=== PATIENT | male | born 1935 | race Caucasian/White ===

== ENCOUNTER → 2017-03-01 | Outpatient (CLI) | payer MEDICARE, BC ==
[~2017-03-01] MED LIST: ACIDOPHILUS PO; ALPRAZOLAM0.25 M1 PO; AMOXICILLIN 8751 TAB PO; ANTIOXIDANT PO; ANTIVERT 25MG25 MG PO; ASPIRIN 32325 MG/TAB PO; ASPRIN; AUGMENTIN XR 101 TER PO; AVELOX 400MG T400 MG PO; CALCIUM 1200 W/1 SGL PO; CALCIUM 600-D 61 TAB PO; CEPHALEXIN500 M1 PO; COZAAR 50MG50 MG/TAB PO; CULTURELLE10 Billion PO; CUTIVATE0.05% TP; DIFLUCAN 100MG100 MG PO; DIGOXIN PO; FLOMAX 0.40.4 MG/CAP PO; FLONASE NASAL S16 GM NS; IBU400 MG PO; ISOPTIN PO; LANOXIN 0.120.125 MG PO; LEVAQUIN 750MG750 M1 PO; MASON NATURAL1200 MG PO; MUCINEX 60600 MG/TA1 PO; MULTI VITAMINS1 TAB PO; MULTIPLE VITAMI1 CAP PO; NATURE'S BLEND400 IU PO; OMEGA-3 FISH1000 MG PO; OMEGA-3 FISH1200 MG PO; OMEPRAZOLE40 MG PO; PREDNISONE10 MG PO; PREDNISONE20 MG PO; PRIL40 PO; PROBIOTIC-MAJOR PO; QUINAGLUTE DUR324 MG PO; QUINIDINE SULF300 M2 PO; RT ADVAIR 228 DISKUS IH; RT SPIRIVA18 MCG IH; SINGULAIR 110 MG/TAB PO; VERAPAMIL HCL80 MG PO; VESICARE10 MG PO; VITAMIN C500 MG PO; VITAMIN D 400400 IU PO; XANAX .25M0.25 MG/TA PO; XANAX0.25 MG PO; ZITHROMAX 250M250 MG PO; ZOCOR 10MG10 MG PO; [UNRECOGNIZED DRUG - OTHER] PO; [UNRECOGNIZED DRUG - OTHER] PO
[2017-03-01 15:03] LABS: CALCIUM 9.5 mg/dL (8.4-10.2); CREATININE, serum 1.06 mg/dL (0.66-1.25); POTASSIUM 4.2 mmol/L (3.4-5.0)
== END ==
LOC: COL.LAB 13:49
PROVIDERS: Internal Medicine Cardiovascular Disease
DX: Z01.89 Encounter for other specified special examinations (principal)

== ENCOUNTER → 2018-03-17 | Outpatient (CLI) | payer MEDICARE, BC ==
[2018-03-17 17:58] LABS: CALCIUM 9.4 mg/dL (8.4-10.2); CREATININE, serum 1.18 mg/dL (0.66-1.25); POTASSIUM 4.3 mmol/L (3.4-5.0)
== END ==
LOC: COL.LAB 17:25
PROVIDERS: Internal Medicine Cardiovascular Disease
DX: I48.91 Unspecified atrial fibrillation (principal)

== ENCOUNTER → 2018-04-08 | Outpatient (CLI) | payer MEDICARE, BC ==
[2018-04-08 19:13] LABS: ALBUMIN 3.7 gm/dL (3.5-5.0); BILIRUBIN,TOTAL 0.9 mg/dL (0.0-1.0); CALCIUM 9.1 mg/dL (8.4-10.2); CREATININE, serum 1.18 mg/dL (0.66-1.25); TOTAL PROTEIN 7.2 gm/dL (6.4-8.2)
[2018-04-08 19:43] LABS: THYROID STIMULATING HORMONE 2.04 uIU/mL (0.465-4.680)
== END ==
LOC: COL.LAB 18:17
PROVIDERS: Internal Medicine Clinical Cardiac Electrophysiology
DX: I48.1 Persistent atrial fibrillation (principal)

== ENCOUNTER → 2018-06-03 | Outpatient (CLI) | payer MEDICARE, BC ==
[2018-06-03 11:20] LABS: BASO # 0.1 (0.0-0.2); BASO % 0.6 % (0.0-2.0); EOS # 0.2 (0.0-0.7); EOS % 2.8 % (0-4.0); GRAN # 5.3 (1.4-6.5); GRAN % 68.9 % (42.2-75.2); HEMATOCRIT 38.8 % (42.0-52.0); HEMOGLOBIN 13.2 g/dl (13.5-18.0); LYMPH # 1.1 (1.2-3.4); LYMPH % 14.2 % (20.0-51.0); MEAN CELL VOLUME 93 fl (80.0-100.0); MEAN CORPUSCULAR HEMOGLOBIN 32 pg (27.0-31.0); MEAN CORPUSCULAR HGB CONC 34 g/dl (33.0-37.0); MEAN PLATELET VOLUME 10.2 fl (7.4-10.4); PLATELET COUNT 166 K/mm3 (130-400); RED BLOOD COUNT 4.17 M/mm3 (4.20-5.60); REDCELL DISTRIBUTION WIDTH-CV 13.6 % (11.5-14.5)
[2018-06-03 11:35] LABS: CALCIUM 9.1 mg/dL (8.4-10.2); CREATININE, serum 1.28 mg/dL (0.66-1.25); POTASSIUM 4.5 mmol/L (3.4-5.0)
== END ==
LOC: COL.LAB 10:52
PROVIDERS: Internal Medicine Cardiovascular Disease
DX: I48.1 Persistent atrial fibrillation (principal); I95.2 Hypotension due to drugs

== ENCOUNTER → 2018-06-13 | Outpatient (CLI) | payer MEDICARE, BC | LOC: COL.VAS 08:15 | DX: G45.1 Carotid artery syndrome (hemispheric) (principal) ==

== ENCOUNTER → 2018-06-15 | Outpatient (CLI) | payer MEDICARE, BC | LOC: COL.RAD 10:53 | DX: N28.1 Cyst of kidney, acquired (principal); I70.0 Atherosclerosis of aorta; D64.9 Anemia, unspecified; Z90.49 Acquired absence of other specified parts of digestive tract ==

== ENCOUNTER → 2018-09-26 | Outpatient (CLI) | payer MEDICARE, BC | LOC: COL.RAD 07:44 | DX: N18.3 Chronic kidney disease, stage 3 (moderate) (principal); N28.1 Cyst of kidney, acquired; N40.0 Benign prostatic hyperplasia without lower urinary tract symptoms ==

== ENCOUNTER → 2019-01-26 | Outpatient (CLI) | payer MEDICARE, BC | LOC: COL.CARD 16:29 | DX: I48.1 Persistent atrial fibrillation (principal) ==

== ENCOUNTER → 2019-01-27 | Outpatient (CLI) | payer MEDICARE, BC ==
[2019-01-27 09:29] LABS: ALBUMIN 3.7 gm/dL (3.5-5.0); BILIRUBIN,TOTAL 1.2 mg/dL (0.0-1.0); CALCIUM 9.1 mg/dL (8.4-10.2); CHOLESTEROL RISK RATIO 2.6; CREATININE, serum 1.22 mg/dL (0.66-1.25); POTASSIUM 3.9 mmol/L (3.4-5.0)
[2019-01-27 09:58] LABS: THYROID STIMULATING HORMONE 1.49 uIU/mL (0.465-4.680)
== END ==
LOC: COL.LAB 08:51
PROVIDERS: Internal Medicine Cardiovascular Disease
DX: E78.5 Hyperlipidemia, unspecified (principal); I48.1 Persistent atrial fibrillation

== ENCOUNTER 2019-03-06 19:17 | Emergency (ER) | payer MEDICARE, BC ==
[~2019-03-06] VITALS: Ht 180.3 cm; Wt 72.7 kg
[2019-03-06 19:20] VITALS: TEMP 98.4
[2019-03-06 20:56] VITALS: BP 169/86; PULSE 77
== END 2019-03-06 20:57 | disposition home or self-care (01) ==
LOC: COL.ER 19:17
DX: S00.11XA Contusion of right eyelid and periocular area, initial encounter (principal); J45.909 Unspecified asthma, uncomplicated; I48.91 Unspecified atrial fibrillation; K21.9 Gastro-esophageal reflux disease without esophagitis; H53.8 Other visual disturbances; Z95.0 Presence of cardiac pacemaker; W22.8XXA Striking against or struck by other objects, initial encounter; Y92.009 Unspecified place in unspecified non-institutional (private) residence as the place of occurrence of the external cause

== ENCOUNTER → 2019-03-17 | Outpatient (CLI) | payer MEDICARE, BC | LOC: COL.VAS 10:45 | DX: I48.1 Persistent atrial fibrillation (principal); I08.3 Combined rheumatic disorders of mitral, aortic and tricuspid valves; I49.5 Sick sinus syndrome; Z95.0 Presence of cardiac pacemaker ==

== ENCOUNTER 2019-10-01 21:32 | Inpatient (IN) | payer MEDICARE, BC ==
[~2019-10-01] VITALS: Ht 180.3 cm; Wt 70.9 kg
[2019-10-01 22:18] LABS: HEMATOCRIT 41.3 % (42.0-52.0); HEMOGLOBIN 14.1 g/dl (13.5-18.0); MEAN CELL VOLUME 92 fl (80.0-100.0); MEAN CORPUSCULAR HEMOGLOBIN 31 pg (27.0-31.0); MEAN CORPUSCULAR HGB CONC 34 g/dl (33.0-37.0); MEAN PLATELET VOLUME 10.1 fl (7.4-10.4); PLATELET COUNT 190 K/mm3 (130-400); RED BLOOD COUNT 4.49 M/mm3 (4.20-5.60); REDCELL DISTRIBUTION WIDTH-CV 13.1 % (11.5-14.5)
[2019-10-01 22:18] LABS: ARTERIAL BLD GAS O2 SATURATION 92.2 % (92-100); ARTERIAL BLD GAS TCO2 CT 21.8; ARTERIAL BLOOD GAS BASE EXCESS 0.1 (-2-2); ARTERIAL BLOOD GAS PCO2 24.9 mmHg (35-45); ARTERIAL BLOOD GAS pH 7.54 (7.35-7.45)
[2019-10-01 22:23] LABS: INR 1.5 (0.8-3.0); PROTHROMBIN TIME 17.5 SECONDS (9.7-12.8)
[2019-10-01 22:33] LABS: ALANINE AMINOTRANSFERASE 25 U/L (21-72); ALBUMIN 3.9 gm/dL (3.5-5.0); ALKALINE PHOSPHATASE 103 U/L (50-136); ANION GAP 11 mmol/L (7-16); AST,SGOT 34 U/L (15-37); BILIRUBIN,TOTAL 2.1 mg/dL (0.0-1.0); BLOOD UREA NITROGEN 23 mg/dL (9-20); C-REACTIVE PROTEIN 6.6 mg/dL (0.0-0.9); CALCIUM 8.9 mg/dL (8.4-10.2); CARBON DIOXIDE 26 mmol/L (22-30); CHLORIDE 99 mmol/L (98-107); CREATININE, serum 1.12 (0.66-1.25); GLUCOSE 157 mg/dL (74-106); POTASSIUM 4.1 mmol/L (3.4-5.0); SODIUM 136 mmol/L (137-145); TOTAL PROTEIN 7.5 gm/dL (6.4-8.2)
[2019-10-01 22:43] LABS: TROPONIN-I < 0.012 ng/mL (0.000-0.035)
[2019-10-01 22:59] LABS: BAND 2 % (0-10); BASOPHIL 1 % (0-2); LYMPHOCYTE 7 % (20.0-51.0); NEUTROPHILS 81 % (42.0-75.2); PLATELET ESTIMATE NORMAL (NORMAL)
[2019-10-01] MEDS ORDERED: ZANTAC 150MG T150 MG PO (23:34)
[2019-10-01] MEDS ORDERED: PROSCAR 5MG5 MG PO (23:34)
[2019-10-01] MEDS ORDERED: DITROPAN 5MG TAB5 MG PO (23:35)
[2019-10-01] MEDS ORDERED: 00186-0370-20 IH (23:35)
[2019-10-01] MEDS ORDERED: PROAIR HFA0.09 MG/AC IH (23:35)
[2019-10-01] MEDS ORDERED: CORDARONE200 MG/TAB PO (23:36)
[2019-10-01] MEDS ORDERED: COSOPT 2%-0.5%10 ML OD (23:36)
[2019-10-01] MEDS ORDERED: ELIQUIS 2.5 PO (23:36)
[2019-10-01] MEDS ORDERED: DUREZOL 5 ML5 ML OD (23:37)
[2019-10-01] MEDS ORDERED: ATROPINE 2 ML2 ML OD (23:37)
[2019-10-02] VITALS (7 sets, daily range): BP systolic 105–141; BP diastolic 48–525; PULSE 62–89; TEMP 97.5–98.7
--- NOTE | 2019-10-02 00:06 | NUR ---
Report received from NATHAN Douglas in Ed
--- NOTE | 2019-10-02 01:30 | NUR ---
Arrived to medical floor. Assessment complete. Wheezing on inspiration throughout all sewell present with crackles in right lower lobe. Denies shortness of breath or diffculty breathing at this time. Heart sounds normal. Bowels active x4. Pulses strong throughout. No edema noted. IV right forearm infusing without complications. Patient alert and orientated. Bed alarm in place due to recent falls. Right elbow abrasion present. Covered with dressing. Patient urinated 500ml of yellow clear urine at this time. Denies pain. Orientated to medical floor and room. All questions answered. RVP collected, UA collected. Call light in reach. Will monitor.
[2019-10-02 01:57] LABS: COLLECTION METHOD CLEAN CATCH
[2019-10-02 02:10] LABS: MUCOUS Present /lpf; PH 6 (5-8); SQUAMOUS EPITHELIAL None Seen /hpf; URINE APPEARANCE Clear; URINE BACTERIA None Seen /hpf; URINE BILIRUBIN Negative (NEGATIVE); URINE BLOOD Negative (NEGATIVE); URINE COLOR Yellow; URINE GLUCOSE Negative (NEGATIVE); URINE KETONE Trace (NEGATIVE); URINE LEUKOCYTE ESTERASE Negative (NEGATIVE); URINE NITRATE Negative (NEGATIVE); URINE PROTEIN(semi-quant) Negative (NEGATIVE); URINE RBC 0-2 /hpf; URINE UROBILINOGEN >=4.0 mg/dL (NEGATIVE)
--- NOTE | 2019-10-02 04:35 | NUR ---
Up to restroom and returned to bed x1 assist. Denies needs at this time. Call light in reach.
--- NOTE | 2019-10-02 06:50 | NUR ---
Report given to NATHAN Leigh
[2019-10-02 06:58] LABS: BASO % 0.3 % (0.0-2.0); EOS % 0.1 % (0-4.0); GRAN # 10.8 (1.4-6.5); GRAN % 79.9 % (42.2-75.2); LYMPH # 1.1 (1.2-3.4); LYMPH % 8.2 % (20.0-51.0); MEAN CELL VOLUME 94 fl (80.0-100.0); MEAN CORPUSCULAR HGB CONC 34 g/dl (33.0-37.0); MEAN PLATELET VOLUME 10.5 fl (7.4-10.4); MONO # 1.5 (0.1-0.6); MONO % 10.8 % (1.7-9.3); PLATELET COUNT 153 K/mm3 (130-400); RED BLOOD COUNT 3.67 M/mm3 (4.20-5.60); REDCELL DISTRIBUTION WIDTH-CV 13.2 % (11.5-14.5)
[2019-10-02 06:59] LABS: HEMATOCRIT 34.4 % (42.0-52.0); MEAN CORPUSCULAR HEMOGLOBIN 32 pg (27.0-31.0)
--- NOTE | 2019-10-02 07:00 | NUR ---
Bedside shift report received from NATHAN Comer. Pt in bed resting with eyes closed, will continue to monitor.
[2019-10-02 07:01] LABS: HEMOGLOBIN 11.7 g/dl (13.5-18.0)
--- NOTE | 2019-10-02 07:05 | NUR ---
Patient had uneventful night. Resting in bed this AM. Call light in reach.
[2019-10-02 07:21] LABS: CALCIUM 8.3 mg/dL (8.4-10.2); CREATININE, serum 0.96 (0.66-1.25); POTASSIUM 3.6 mmol/L (3.4-5.0)
--- NOTE | 2019-10-02 08:20 | NUR ---
Assessment charted. Pt feeling okay, essential tremor is very pronounced, chronic issue. Pt alert and oriented. IVF to RFA. Denies pain. RLL is course and crackly. ST in room to assess swallowing, will continue to monitor.
--- NOTE | 2019-10-02 09:20 | NUR ---
SW met with the patient and the patient's , Aurelia (ph#[phone]), to discuss discharge plan. The patient lives in [place] with his and works at [employer] in [place] 3xs a week. He reports independence with ADLs and has a walker. The patient's PCP is Dr. Gautam Garcia and he receives his medications at [facility]. He reports no difficulties obtaining his meds. The patient's advanced directives are in EMR. His is his DPOA-HC. The patient plans to return home with his upon discharge. No additional needs at this time, but SW to continue to follow.
--- NOTE | 2019-10-02 17:47 | NUR ---
Pt resting in chair at side of bed. HOme eye drops given per request. PT feeling well, denies pain. at bedside. C/o disliking food, called and got a new tray ordered for supper and pt is excited. Denies needs, will give bedside shift report to nightshift nurse who will resume care.
--- NOTE | 2019-10-02 20:00 | NUR ---
Assessment complete. Pt layin gin bed with at bedside. Alert and oriented. Medications given as ordered. Denies pain or SOB at this time. Skin tear to Rt elbow, no bleeding, cleansed with NS, telfa applied and secured with paper tape. Pt tolerated well. INT to SAY patent, flushed, dressing CDI. Needs met. Call light within reach.
[2019-10-03 03:18] VITALS: BP 116/51; PULSE 74; TEMP 98.9
--- NOTE | 2019-10-03 05:07 | NUR ---
Pt uneventful during this shift. Slept well throughout the night. Call light within reach.
[2019-10-03 07:07] VITALS: BP 121/52; PULSE 64; TEMP 98.1
[2019-10-03 07:31] LABS: CALCIUM 8.2 mg/dL (8.4-10.2); CREATININE, serum 1.04 (0.66-1.25); POTASSIUM 3.5 mmol/L (3.4-5.0)
--- NOTE | 2019-10-03 07:31 | NUR ---
Report from Humaira EVANS.
[2019-10-03 07:36] LABS: BASO % 0.3 % (0.0-2.0); EOS # 0.1 (0.0-0.7); EOS % 0.8 % (0-4.0); GRAN # 8.4 (1.4-6.5); GRAN % 76.2 % (42.2-75.2); HEMOGLOBIN 11.5 g/dl (13.5-18.0); LYMPH # 1.2 (1.2-3.4); LYMPH % 10.8 % (20.0-51.0); MEAN CELL VOLUME 93 fl (80.0-100.0); MEAN CORPUSCULAR HEMOGLOBIN 32 pg (27.0-31.0); MEAN CORPUSCULAR HGB CONC 34 g/dl (33.0-37.0); MEAN PLATELET VOLUME 10.7 fl (7.4-10.4); MONO # 1.2 (0.1-0.6); MONO % 11.1 % (1.7-9.3); PLATELET COUNT 159 K/mm3 (130-400); RED BLOOD COUNT 3.65 M/mm3 (4.20-5.60); REDCELL DISTRIBUTION WIDTH-CV 13.2 % (11.5-14.5)
[2019-10-03] MEDS ORDERED: ZITHROMAX500 M2 PO (09:57)
[2019-10-03] MEDS ORDERED: PREDNISONE20 MG PO (10:05)
--- NOTE | 2019-10-03 10:17 | NUR ---
PT UP TO RECLINER FOR BREAKFAST. PT IS A/O X3, PLAN ON DISCHARGE LATER TODAY. LUNGS COARSE.
[2019-10-03 11:19] VITALS: BP 113/50; PULSE 65; TEMP 97.9
--- NOTE | 2019-10-03 11:47 | NUR ---
DISCHARGE INSTRUCTIONS PROVIDED TO PATIENT AND FAMILY. INT DISCONTINUED. PT LEFT AMBULATORY WITH STAFF.
== END 2019-10-03 11:48 | disposition home or self-care (01) | DRG 871 ==
LOC: COL.ER 21:32 → MEDICAL 23:25
PROVIDERS: Emergency Medicine; Physician Assistant; ADMIT Hospitalist
DX: A41.9 Sepsis, unspecified organism (principal); J18.9 Pneumonia, unspecified organism; J96.01 Acute respiratory failure with hypoxia; R53.81 Other malaise; D64.9 Anemia, unspecified; I48.91 Unspecified atrial fibrillation; E78.5 Hyperlipidemia, unspecified; H40.9 Unspecified glaucoma; I10 Essential (primary) hypertension; K21.9 Gastro-esophageal reflux disease without esophagitis; N40.0 Benign prostatic hyperplasia without lower urinary tract symptoms; N32.81 Overactive bladder; F41.9 Anxiety disorder, unspecified; B97.10 Unspecified enterovirus as the cause of diseases classified elsewhere; B97.89 Other viral agents as the cause of diseases classified elsewhere; J45.909 Unspecified asthma, uncomplicated; Z79.01 Long term (current) use of anticoagulants; Z91.81 History of falling; Z96.651 Presence of right artificial knee joint; Z79.51 Long term (current) use of inhaled steroids
CPT/HCPCS: 99222-AI; 99233-AI; 99239; A4216; J0456; J0696; J7030; J7050

== ENCOUNTER 2021-08-09 23:54 | Emergency (ER) | payer MEDICARE, BC ==
[~2021-08-09] VITALS: Ht 180.3 cm; Wt 72.7 kg
[~2021-08-09 23:54] MED LIST changes: +00186-0370-20 IH; +ATROPINE 2 ML2 ML OD; +CORDARONE200 MG/TAB PO; +COSOPT 2%-0.5%10 ML OD; +DITROPAN 5MG TAB5 MG PO; +DUREZOL 5 ML5 ML OD; +ELIQUIS 2.5 PO; +PERCOCET 325 MG1 TA2 PO; +PROAIR HFA0.09 MG/AC IH; +PROSCAR 5MG5 MG PO; +ZANTAC 150MG T150 MG PO; +ZITHROMAX500 M2 PO
[2021-08-10 00:28] VITALS: TEMP 97.9
[2021-08-10 01:16] VITALS: BP 124/78; PULSE 72
== END 2021-08-10 01:16 | disposition home or self-care (01) ==
LOC: COL.ER 23:54
DX: S51.012A Laceration without foreign body of left elbow, initial encounter (principal); W01.0XXA Fall on same level from slipping, tripping and stumbling without subsequent striking against object, initial encounter; Y92.009 Unspecified place in unspecified non-institutional (private) residence as the place of occurrence of the external cause

== ENCOUNTER 2021-12-30 14:30 | Outpatient (RCR) | payer MEDICARE, BC | END 2022-01-05 | disposition home or self-care (01) | LOC: MKS.ESL.OT | DX: G25.0 Essential tremor (principal); G20 Parkinson's disease; G31.84 Mild cognitive impairment of uncertain or unknown etiology ==

== ENCOUNTER → 2022-02-05 | Outpatient (RCR) | payer MEDICARE, BC | END | disposition still patient (30) | LOC: MKS.ESL.OT | DX: G20 Parkinson's disease (principal); G31.84 Mild cognitive impairment of uncertain or unknown etiology ==

== ENCOUNTER 2022-03-05 15:00 | Outpatient (RCR) | payer MEDICARE, BC | END 2022-03-07 | disposition home or self-care (01) | LOC: MKS.ESL.OT | DX: G25.0 Essential tremor (principal); G20 Parkinson's disease; G31.84 Mild cognitive impairment of uncertain or unknown etiology ==

== ENCOUNTER 2022-04-02 15:15 | Outpatient (RCR) | payer MEDICARE, BC | END 2022-04-07 | disposition home or self-care (01) | LOC: MKS.ESL.OT | DX: G25.0 Essential tremor (principal); G20 Parkinson's disease; G31.84 Mild cognitive impairment of uncertain or unknown etiology ==

== ENCOUNTER → 2022-05-07 | Outpatient (RCR) | payer MEDICARE, BC | END | disposition home or self-care (01) | LOC: MKS.ESL.OT | DX: G25.0 Essential tremor (principal); G20 Parkinson's disease; G31.84 Mild cognitive impairment of uncertain or unknown etiology ==

== ENCOUNTER 2024-07-12 13:34 | Emergency (ER) | payer MEDICARE, BC ==
[~2024-07-12] VITALS: Ht 180.3 cm; Wt 72.7 kg
[2024-07-12] MEDS ORDERED: NS 500 ML IV ONE (14:00)
[2024-07-12 14:14] LABS: HEMATOCRIT 40.6 % (42.0-52.0); HEMOGLOBIN 14.2 g/dl (13.5-18.0); MEAN CELL VOLUME 95 fl (80.0-100.0); MEAN CORPUSCULAR HEMOGLOBIN 33 pg (27-31); MEAN CORPUSCULAR HGB CONC 35 g/dl (33.0-37.0); MEAN PLATELET VOLUME 10.2 fl (7.4-10.4); PLATELET COUNT 156 K/mm3 (130-400); RED BLOOD COUNT 4.29 M/mm3 (4.20-5.60); REDCELL DISTRIBUTION WIDTH-CV 14.2 % (11.5-14.5)
[2024-07-12 14:35] LABS: ALBUMIN 3.5 g/dL (3.4-4.8); BILIRUBIN,TOTAL 2.2 mg/dL (0.2-1.2); CREATININE, serum 1.11 mg/dL (0.72-1.25); POTASSIUM 3.8 mEq/L (3.5-4.5); TOTAL PROTEIN 6.8 g/dl (6.2-8.1)
[2024-07-12 14:43] LABS: TROPONIN-I 0.064 ng/mL (0.00-0.033)
[2024-07-12] MEDS ORDERED: dexAMETHasone 10 MG/ML VIAL IV ONE (14:45)
[2024-07-12 14:52] LABS: BAND 2 % (0-10); LYMPHOCYTE 11 % (20.0-51.0); NEUTROPHILS 81 % (42.0-75.2); PLATELET ESTIMATE NORMAL (NORMAL)
[2024-07-12 14:57] LABS: URINE APPEARANCE CLEAR (CLEAR/HAZY); URINE BLOOD NEGATIVE (NEGATIVE); URINE COLOR YELLOW (YELLOW); URINE GLUCOSE NEGATIVE (NEGATIVE); URINE KETONE NEGATIVE (NEGATIVE); URINE NITRATE NEGATIVE (NEGATIVE); URINE PROTEIN(semi-quant) NEGATIVE (NEGATIVE); URINE UROBILINOGEN 0.2 E.U/dL (0.2-1.0)
[2024-07-12 15:15] LABS: COLLECTION METHOD CLEAN CATCH
[2024-07-12 16:30] VITALS: TEMP 98.3
[2024-07-12 17:28] VITALS: BP 129/77; PULSE 60
== END 2024-07-12 17:45 | disposition home or self-care (01) ==
LOC: COL.ER 13:34
PROVIDERS: Nurse Practitioner
DX: U07.1 COVID-19 (principal); R50.9 Fever, unspecified; R05.9 Cough, unspecified; R53.83 Other fatigue
CPT/HCPCS: J1100; J7040